=== PATIENT | female | born 1960 | race Caucasian/White ===

== ENCOUNTER 2022-06-23 09:20 | Emergency (ER) | payer OTHER ==
[~2022-06-23] VITALS: Ht 160 cm; Wt 80.7 kg
--- NOTE | 2022-06-23 09:51 | NUR ---
PT AMBULATED TO BED 09.
--- NOTE | 2022-06-23 10:02 | NUR ---
61 Y/O FEMALE BIB SELF C/O CHEST PRESSURE RADIATING TO THE LEFT ARM X3 DAYS WITH NAUSEA, DENIES ANY VD. STATES PRODUCTIVE COUGH. DENIES ANY MEDICATION FOR PAIN. DENIES ANY DIZZINESS, BLURRY VISION ABD PAIN. CHANGED INTO A GOWN AND PLACED ON BEDSIDE MONITOR NKA PMH: HYPOTHYROID, ASTHMA IN CHILDHOOD
--- NOTE | 2022-06-23 10:25 | NUR ---
DR SCHMIDT AT BEDSIDE.
[2022-06-23] MEDS ORDERED: NAPR-1704 PO (10:31)
[2022-06-23] MEDS ORDERED: PROM118S6 PO (10:31)
--- NOTE | 2022-06-23 10:38 | NUR ---
SWABS WALKED TO LAB
--- NOTE | 2022-06-23 10:41 | NUR ---
Patient discharged with v/s stable. Written and verbal after care instructions ABOUT VIRAL ILLNESS given and explained. Patient alert, oriented and verbalized understanding of instructions. Ambulatory with steady gait. All questions addressed prior to discharge. ID band removed. Patient advised to follow up with PMD. Rx of PROMETHAZINE DM, NAPROXEN given. Patient educated on indication of medication including possible reaction and side effects. Opportunity to ask questions provided and answered.
== END 2022-06-23 10:41 | disposition home or self-care (01) ==
LOC: MED 09:20
DX: B34.9 Viral infection, unspecified (principal); J45.909 Unspecified asthma, uncomplicated; E03.9 Hypothyroidism, unspecified; Z79.899 Other long term (current) drug therapy; Z79.1 Long term (current) use of non-steroidal anti-inflammatories (NSAID)
CPT/HCPCS: 93005; 99284